=== PATIENT | male | born 1960 | race Caucasian/White ===

== ENCOUNTER 2017-09-10 17:59 | Emergency (ER) | payer OTHER, MEDICARE ==
--- NOTE | 2017-09-10 18:10 | PDOC ---
Rapid Medical Evaluation Time Seen by Provider: 09/10/17 18:06 Medical Evaluation: Allergies Allergy/AdvReac Type Severity Reaction Status Date / Time piperacillin sodium Allergy Mild Verified 06/12/15 13:23 [From Zosyn] tazobactam sodium Allergy Mild Verified 06/12/15 13:23 [From Zosyn] I have performed a brief in-person evaluation of this patient. The patient presents with a chief complaint of: toothache x 4 days. Called dentist today who said to come here Pertinent physical exam findings: poor dentition. erythematous, slightly swollen gingiva of right lower mouth. Took 2 excedrin at 2pm and is using ambesol. Patient is willing to have an inferior alveolar block injection. HE IS ON COUMADIN I have ordered the following: nothing The patient will proceed to the ED for further evaluation. Discharge Disposition - Diagnosis Toothache - Referrals Referrals: Lori Coyle MD [Primary Care Provider] - - Patient Instructions - Post Discharge Activity
[2017-09-10 18:14] VITALS: BP 120/51; PULSE 96; TEMP 97.9; BMI 35.7
--- NOTE | 2017-09-10 18:32 | PDOC ---
History of Present Illness - General Chief Complaint: Toothache Stated Complaint: TOOTHACHE, BACK PAIN Time Seen by Provider: 09/10/17 18:06 History Source: Patient, Parent(s) Exam Limitations: No Limitations - History of Present Illness Initial Comments: 09/10/17 18:43 Patient came to emergency department for evaluation of dental pain. States his upper or many months with multiple areas of dental issues and caries. At 3 teeth pulled last month and stated had onset of pain to the right upper molars 2 days ago. Has been using aspirin products and embolus. Went to see his dentist today who referred him to the emergency department. Denies fever, denies facial swelling but feels has a swelling and has come wall. Came for evaluation and hopeful antibiotics. Timing/Duration: unsure Severity: mild Associated Symptoms: reports: headaches, loss of appetite, malaise. denies: fever/chills Past History - Travel Traveled outside of the country in the last 30 days: No Close contact w/someone who was outside of country & ill: No - Past Medical History Allergies/Adverse Reactions: Allergies Allergy/AdvReac Type Severity Reaction Status Date / Time piperacillin sodium Allergy Mild Verified 09/10/17 18:07 [From Zosyn] tazobactam sodium Allergy Mild Verified 09/10/17 18:07 [From Zosyn] Home Medications: Ambulatory Orders Gabapentin [Neurontin -] 300 mg PO TID #0 capsule 10/09/12 Clopidogrel Bisulfate [Plavix -] 75 mg PO DAILY #30 tablet 05/22/15 Diazepam [Valium] 5 mg PO Q8H PRN #30 tablet 05/22/15 Lisinopril [Prinivil] 10 mg PO DAILY #30 tablet 05/22/15 Metoprolol Succinate [Toprol XL -] 25 mg PO DAILY #30 tab.sr.24h 05/22/15 Warfarin Na [Coumadin -] 7.5 mg PO DAILY@1800 #30 tablet 05/22/15 Levothyroxine [Synthroid -] 175 mcg PO DAILY 06/11/15 Oxycodone HCl/Acetaminophen [Oxycodone-Acetaminophen 10-325] 1 each PO Q4H PRN 06/11/15 Atorvastatin Ca [Lipitor] 40 mg PO HS tablet 06/13/15 Enoxaparin [Lovenox -] 100 mg SQ BID #1 disp.syrin 06/13/15 Rifampin 300 mg PO BID #14 capsule 06/13/15 Ropinirole HCl [Requip -] 0.5 mg PO HS tablet 06/13/15 Clindamycin [Cleocin -] 300 mg PO TID #21 capsule 09/10/17 Oxycodone HCl/Acetaminophen [Percocet 5-325 mg Tablet -] 1 - 2 tab PO Q4H PRN # 7 tablet MDD 4 09/10/17 Cancer: No Cardiac Disorders: No CVA: No Dementia: No Diabetes: No GI Disorders: No HTN: Yes Hypercholesterolemia: No Liver Disease: No Seizures: No Thyroid Disease: Yes (hypo) - Surgical History Orthopedic Surgery: Yes (R. Ankle fx., back/neck disc disease, arterial occlusion LLE) - Suicide/Smoking/Psychosocial Hx Smoking Status: Yes Smoking History: Former smoker Have you smoked in the past 12 months: Yes Number of Cigarettes Smoked Daily: 7 If you are a former smoker, when did you quit?: 07/2017 Information on smoking cessation initiated: Yes 'Breaking Loose' booklet given: 03/10/15 Hx Alcohol Use: No Drug/Substance Use Hx: No Substance Use Type: None Hx Substance Use Treatment: No Review of Systems - Review of Systems Able to Perform ROS?: Yes Is the patient limited Telugu proficient: Yes Constitutional: Yes: Symptoms Reported, See HPI, Loss of Appetite, Malaise. No : Fever HEENTM: Yes: Symptoms Reported, See HPI, Throat Pain, Mouth Pain, Dental Problems Respiratory: Yes: See HPI. No: Symptoms reported, Cough Musculoskeletal: Yes: See HPI. No: Symptoms Reported Integumentary: Yes: See HPI. No: Symptoms Reported All Other Systems: Reviewed and Negative *Physical Exam - Vital Signs Last Vital Signs Temp Pulse Resp BP Pulse Ox 97.9 F 96 H 18 120/51 100 09/10/17 18:05 09/10/17 18:05 09/10/17 18:05 09/10/17 18:05 09/10/17 18:05 - Physical Exam General Appearance: Yes: Appropriately Dressed HEENT: positive: MIGUEL, Normal ENT Inspection, TMs Normal, Pharynx Normal, Other (multiple areas of decayed teeth with areas of dentine loss. Has no obvious abscess although has tenderness along gingival borders posterior right side, nonfluctuant area). negative: Pharyngeal Erythema Neck: positive: Tender, Supple, Lymphadenopathy (R), Lymphadenopathy (L) Respiratory/Chest: positive: Lungs Clear, Normal Breath Sounds Gastrointestinal/Abdominal: positive: Soft. 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 We'll start amoxicillin, the block due to patient's anticoagulated status and extremely poor dentition. We'll give #6 Percocet tablets and have follow-up at centers/dental clinic [facility] tomorrow morning *DC/Admit/Observation/Transfer Diagnosis at time of Disposition: Toothache - Discharge Dispostion Disposition: HOME Condition at time of disposition: Stable Decision to Admit order: No - Referrals Referrals: Lori Coyle MD [Primary Care Provider] - - Patient Instructions Printed Discharge Instructions: DI for Dental Pain Additional Instructions: Rest, drink lots of fluids: Teas, water, soups Saltwater gargles/ keep mouth clean and rinse after each meal May use wet teabag for pain relief to area Avoid hard chewing foods, stick to ice cream, Jell-O, yogurt etc. Tylenol or Motrin for fever and pain Complete all medication as prescribed Seek dental appointment as soon as possible for evaluation of dental injury/pain Followup with private physician in one to 2 days as needed Return to emergency department for worsened symptoms, fevers, swelling to face or worsened pain - Post Discharge Activity Forms/Work/School Notes: Back to Work
== END 2017-09-10 18:50 | disposition home or self-care (01) ==
LOC: JERFT 17:59
DX: K02.9 Dental caries, unspecified (principal); I10 Essential (primary) hypertension; E03.9 Hypothyroidism, unspecified; Z79.01 Long term (current) use of anticoagulants; Z88.8 Allergy status to other drugs, medicaments and biological substances
CPT/HCPCS: 99281-25

== ENCOUNTER 2018-01-19 12:12 | Emergency (ER) | payer OTHER, MEDICARE ==
[2018-01-19 12:31] VITALS: BP 135/86; PULSE 93; TEMP 98.1; BMI 33.4
--- NOTE | 2018-01-19 13:24 | PDOC ---
History of Present Illness - General Chief Complaint: Toothache Stated Complaint: SWELLING, MOUTH Time Seen by Provider: 01/19/18 12:46 - History of Present Illness Initial Comments: Sandor Vera is a 57yo man with a PMH of HTN, HLD, hypothyroid, restless leg, PAD s/p LLE thrombectomy and stent, RLE bypass, on anticoagulation, recently diagnosed DM, and chronic dental problems who presents with a left upper toothache for two days and new facial swelling today. He was previously seen in August for a similar issue and given a prescription for augmentin; he has not seen a dentist since that time due to insurance difficulties. Mr Vera reports that he started having tooth pain in his left upper teeth on Thursday. He was taking Tylenol at home and using a topical numbing medication with good pain relief. Today, he is no longer having any pain in his teeth, but he noticed swelling under his left eye. He called a nurse on the phone to ask for advice, and he was told that he might have an infection and needed to present to the ED. He denies pain in the area of facial swelling. He has not had any fevers, shivering, swelling or drainage in his mouth, nasal congestion, ear or throat pain. Past History - Past Medical History Allergies/Adverse Reactions: Allergies Allergy/AdvReac Type Severity Reaction Status Date / Time piperacillin sodium Allergy Mild Verified 01/19/18 12:19 [From Zosyn] tazobactam sodium Allergy Mild Verified 01/19/18 12:19 [From Zosyn] Home Medications: Ambulatory Orders Clopidogrel Bisulfate [Plavix -] 75 mg PO DAILY #30 tablet 05/22/15 Diazepam [Valium] 5 mg PO Q8H PRN #30 tablet 05/22/15 Lisinopril [Prinivil] 10 mg PO DAILY #30 tablet 05/22/15 Metoprolol Succinate [Toprol XL -] 25 mg PO DAILY #30 tab.sr.24h 05/22/15 Warfarin Na [Coumadin -] 7.5 mg PO DAILY@1800 #30 tablet 05/22/15 Levothyroxine [Synthroid -] 150 mcg PO DAILY 06/11/15 Oxycodone HCl/Acetaminophen [Oxycodone-Acetaminophen 10-325] 1 each PO Q4H PRN 06/11/15 Atorvastatin Ca [Lipitor] 40 mg PO HS tablet 06/13/15 Rifampin 300 mg PO BID #14 capsule 06/13/15 Ropinirole HCl [Requip -] 0.5 mg PO HS tablet 06/13/15 Oxycodone HCl/Acetaminophen [Percocet 5-325 mg Tablet -] 1 - 2 tab PO Q4H PRN # 7 tablet MDD 4 09/10/17 Gabapentin [Neurontin -] 400 mg PO BID 01/19/18 Metformin HCl [Metformin HCl ER] 500 mg PO BID 01/19/18 Cancer: No Cardiac Disorders: No CVA: No COPD: No Dementia: No Diabetes: Yes (on meds just started) GI Disorders: No HTN: Yes Hypercholesterolemia: No Liver Disease: No Seizures: No Thyroid Disease: Yes (hypo) - Surgical History Orthopedic Surgery: Yes (R. Ankle fx., back/neck disc disease, arterial occlusion LLE) - Immunization History Immunization Up to Date: Yes - Suicide/Smoking/Psychosocial Hx Smoking Status: Yes Smoking History: Current every day smoker Have you smoked in the past 12 months: Yes Number of Cigarettes Smoked Daily: 5 If you are a former smoker, when did you quit?: 07/2017 Information on smoking cessation initiated: No 'Breaking Loose' booklet given: 03/10/15 Hx Alcohol Use: Yes Drug/Substance Use Hx: No Substance Use Type: None Hx Substance Use Treatment: No Review of Systems - Review of Systems Comments:: General: No fevers, no chills, no weight or appetite change, no malaise HEENT: No changes in vision, no changes in hearing, no congestion, no sore throat CV: No chest pain, no palpitations, no LE edema Pulm: No SOB, no cough, no wheezing GI: No nausea or vomiting, no change in bowel habits, no melena : No frequency, no urgency, no dysuria Musc: + Chronic back pain, no joint swelling, no recent injury Skin: No rash, no lesions, no erythema Endo: No excessive thirst, no heat/cold intolerance Heme: No unusual bruising or bleeding, no swollen glands Neuro: No syncope, +chronic numbness and weakness in b/l ulnar distribution Vasc: h/o PAD Psych: No recent change in mood, no SI or HI *Physical Exam - Vital Signs Last Vital Signs Temp Pulse Resp BP Pulse Ox 98.1 F 93 H 18 135/86 100 01/19/18 12:19 01/19/18 12:19 01/19/18 12:19 01/19/18 12:19 01/19/18 12:19 - Physical Exam Comments: General: Comfortable, no acute distress HEENT: PERRL, EOMI, MMM, voice normal, normal neck ROM, no LAD Very poor dentition. Less than half of teeth present. Multiple teeth broken or chipped, numerous visible carries. Upper teeth left 2nd and 3rd from midline broken off at the gumline. Gums surrounding erythematous and visibly swollen compared to right. No drainage or open wounds. Left lower eyelid minimally swollen and nontender Slight induration and erythema immediately to the left of his nose. Moderately TTP. No fluctuance. Cards: RRR Pulm: Comfortable on room air Abd: Soft, nontender, nondistended Ext: Atraumatic. ROM intact. Strength 5/5 and equal bilaterally Skin: Normal color, no rashes or lesions Neuro: A&Ox3, CN grossly intact, normal speech, motor/sensory grossly intact and symmetric Psych: Mood appropriate to situation Medical Decision Making - Medical Decision Making Sandor Vera is a 57yo man with multiple chronic medical conditions including poor dentition with numberous missing teeth and carries, previously seen in August for a toothache, poor dental follow-up, who presents with left upper tooth pain for 2 days and now left paranasal and left lower eyelid swelling and tenderness today. - Exam of mouth reveals red, swollen, tender upper left gums consistent with gingivitis surrounding 2 teeth broken off at the gumline - Left face with slight induration and tenderness, but no significant swelling, no fluctuance, no crepitus. Along with a lack of any apparent wound, drainage, or sign of an abscess in the mouth, there is currently no concern for facial abscess that needs to be drained - 1x dose augmentin given in ED. Will prescribe 10 day course of augmentin to complete at home. - Discussed with Mr Vera that he needs to see his dentist as soon as possible. He states that he will call to make an appointment today - Discussed return precautions including significantly increased swelling, pain , redness in his face, or worsening of symptoms after 24-48hrs of antibiotics. He stated understanding. Discharge home with Augmentin and close dental follow up. Seen with Dr Hart. Drea Calzada PGY1 *DC/Admit/Observation/Transfer Diagnosis at time of Disposition: Gingivitis - Discharge Dispostion Disposition: HOME Condition at time of disposition: Stable Decision to Admit order: No - Referrals Referrals: Domingo Smith MD [Primary Care Provider] - - Patient Instructions Printed Discharge Instructions: DI for Dental Pain, DI for Gingivitis Additional Instructions: Discharge Instructions: - You were seen in the ED for pain in your left upper teeth and left facial swelling with pain - You most likely have a gum infection called gingivitis. Becasue it is present near broken teeth, the infection and inflammation may have extended up into your left cheek - There is no sign currently of any fluid pocket or abscess that needs to be drained - You were given the first dose of an antibiotic, Augmentin, in the ED. You have been prescribed this antibiotic to continue at home. Please take it twice per day starting tonight until you finish all of the pills. Do not stop taking it early even if you feel better. - Please make an appointment as soon as possible, ideally tomorrow, to see your regular dentist for follow up. - Return to the ED for immediate evaluation if you have significantly worsening pain, swelling, redness in your face, if you have fevers at home (100F or higher ), if you notice any draining wound in your mouth, or if you symptoms continue to worsen even after 1-2 days of antibiotic treatment. - Post Discharge Activity
[2018-01-19] MEDS ORDERED: AMOX TR/POT CLAV 875MG/125MG TABLETS (FP) PO ONE (13:52)
[2018-01-19] MEDS ORDERED: AMOX TR/POT CLAV 875MG/125MG TABLETS (FP) ONE (14:09)
--- NOTE | 2018-01-19 14:13 | PDOC ---
Attending Attestation - Resident Resident Name: Drea Calzada - ED Attending Attestation I have performed the following: I have examined & evaluated the patient, The case was reviewed & discussed with the resident, I agree w/resident's findings & plan, Exceptions are as noted - Medical Decision Making 01/19/18 13:52 A portion of this note was documented by scribe services under my direction. I have reviewed the details of the note, within reason, and agree with the documentation with the following case summary and management plan written by me. Patient treated in the ED. Nursing notes are reviewed and incorporated into the medical decision-making. Vital signs reviewed. Vital Signs Temp Pulse Resp BP Pulse Ox 98.1 F 93 H 18 135/86 100 01/19/18 12:19 01/19/18 12:19 01/19/18 12:19 01/19/18 12:19 01/19/18 12:19 57 year old male with hx of HTN, DM, PAD, CAD, multiple spinal surgeries, poor dentition p/w tooth infection. The patient noted for the last 2 days of having left upper tooth pain. Noted some pain along the gums and today, noticed some induration of left maxillary facial region. No airway obstruction. There is no clinical evidence of orbital cellulitis or facial abscess. The patient has gingivitis and very early stages of very mild left maxillary facial cellulitis. Pt has taken augmentin prior without complications. Will d/c patient with augmentin and encourage him to follow up with a dentist. <Alexei Hart - Last Filed: 01/19/18 13:51> - HPI HPI: 01/19/18 14:27 The patient is a 57-year-old male, with a past medical history of HTN, DM, PAD, CAD, hypothyroidism, poor dentition, who presents to the ED with 2 days of left upper tooth pain. Patient reports taking Tylenol at home and using a topical numbing cream that helped to alleviate his symptoms. He noted some swelling to his left maxillary region and pain along his gums this morning which prompted him to report to the ED. He denies any fevers, chills, throat swelling, throat pain, or orbital swelling. Allergies: piperacillin sodium, tazobactam sodium. Past Social History: Reports tobacco and alcohol use. Past Surgical History: R. Ankle fx., back/neck disc disease, arterial occlusion LLE PCP: Dr. Domingo Smith. - Physicial Exam PE: 01/19/18 14:27 GENERAL: Awake, alert, and fully oriented, in no acute distress HEAD: No signs of trauma EYES: PERRLA, EOMI, no pain, no periorbital edema, sclera anicteric, conjunctiva clear ENT: (+)Poor dentition, exposed and infected gingiva around tooth 6, very mild erythema, a 3x3cm area of induration to the left maxillary region, no fluctuates , very mild erythema. Auricles normal inspection, hearing grossly normal, nares patent, oropharynx clear without exudates. Moist mucosa. NECK: Normal ROM, supple, no lymphadenopathy, JVD, or masses EXTREMITIES: Normal range of motion, no edema. No clubbing or cyanosis. No cords, erythema, or tenderness NEUROLOGICAL: Cranial nerves II through XII grossly intact. Normal speech, normal gait SKIN: Warm, Dry, normal turgor, no rashes or lesions noted. <Lyla Zavaleta - Last Filed: 01/19/18 14:28> Attestations - Attestations 01/19/18 14:28 Documentation prepared by Lyla Zavaleta, acting as general medical practitioner for Alexei Hart MD. <Lyla Zavaleta - Last Filed: 01/19/18 14:28>
== END 2018-01-19 14:30 | disposition home or self-care (01) ==
LOC: JER 12:12
DX: K05.00 Acute gingivitis, plaque induced (principal); I10 Essential (primary) hypertension; E78.00 Pure hypercholesterolemia, unspecified; E03.9 Hypothyroidism, unspecified; E11.9 Type 2 diabetes mellitus without complications; Z79.84 Long term (current) use of oral hypoglycemic drugs; I73.89 Other specified peripheral vascular diseases; Z95.820 Peripheral vascular angioplasty status with implants and grafts; Z79.01 Long term (current) use of anticoagulants; Z88.8 Allergy status to other drugs, medicaments and biological substances
CPT/HCPCS: 99281-25

== ENCOUNTER 2021-10-30 17:18 | Observation (INO) | payer OTHER, MEDICARE ==
[2021-10-30] MEDS ORDERED: SODIUM CHLORIDE 1,000 ML IV STA (17:30)
[2021-10-30] MEDS ORDERED: ACETAMINOPHEN 1000 MG/100 ML BAG IVPB ONE (17:31)
[2021-10-30] MEDS ORDERED: ACETAMINOPHEN INJECTION 100 ML IVPB ONE (17:51)
[2021-10-30 17:55] LABS: HEMATOCRIT 39.8 % (35.4-49); HEMOGLOBIN 14.1 G/dL (11.7-16.9); MCHC 35.5 g/dl (32.0-35.9); MEAN CELL VOLUME 87.2 fl (80-96); MEAN PLT VOLUME 7.6 fl (7.5-11.1); PLATELET COUNT 417.5 10^3/uL (134-434); RBC 4.56 10^6/uL (4.00-5.60); RDW 14.8 % (11.9-15.9); WHITE BLOOD COUNT 13.9 10^3/uL (4.0-10.8)
[2021-10-30 18:18] LABS: PLATELET ESTIMATE ADEQUATE
[2021-10-30 18:23] LABS: CALCIUM 8.7 mg/dl (8.5-10)
[2021-10-30 18:34] LABS: ALBUMIN 2.6 g/dl (3.4-5.0); BILIRUBIN,TOTAL 1.2 mg/dl (0.2-1); TOT PROT 6.8 g/dl (6.4-8.2)
[2021-10-30 19:02] LABS: INR > 15.00 (0.83-1.09)
[2021-10-30] MEDS ORDERED: PHYTONADIONE 5 MG TABLET PO ONE (19:59)
[2021-10-30] MEDS ORDERED: PHYTONADIONE 5 MG TABLET ONE (20:34)
[2021-10-30] MEDS: GABAPENTIN 400 MG CAPSULE PO SCH (23:26)
[2021-10-30] MEDS: rOPINIRole HCL 0.5 MG TABLET PO SCH (23:26)
[2021-10-30 23:53] VITALS: BMI 28.3
[2021-10-31 01:06] LABS: URINE APPEARANCE CLEAR; URINE BILIRUBIN NEGATIVE (NEGATIVE); URINE COLOR YELLOW; URINE GLUCOSE (UA) NEGATIVE (NEGATIVE); URINE KETONE 1+ (NEGATIVE); URINE LEUK ESTERASE NEGATIVE (NEGATIVE); URINE NITRITE NEGATIVE (NEGATIVE); URINE PROTEIN NEGATIVE (NEGATIVE)
[2021-10-31] MEDS ORDERED: LEVOTHYROXINE NA 150 MCG TABLET PO SCH (07:00)
[2021-10-31 07:54] LABS: CREATININE 0.8 mg/dl (0.55-1.3); MAGNESIUM 1.9 mg/dL (1.8-2.4); PHOSPHOROUS 2.7 mg/dl (2.5-4.9)
[2021-10-31 08:02] LABS: INR 5.26 (0.83-1.09); PROTHROMBIN TIME (PATIENT) 61.5 SEC (9.7-13.0)
[2021-10-31 08:05] LABS: ACTIVATED PTT 58.1 SECONDS (25.2-36.5)
[2021-10-31] MEDS: GABAPENTIN 400 MG CAPSULE PO SCH ×2 (09:29→21:33)
[2021-10-31] MEDS: CLOPIDOGREL BISULFATE 75 MG TABLET (FP) PO SCH (09:29)
[2021-10-31] MEDS: ACETAMINOPHEN 325 MG TABLET (FP) PO PRN ×2 (09:29→19:44)
[2021-10-31] MEDS: metoPROLOL SUCCINATE 25 MG TAB.SR.24H (FP) PO SCH (09:30)
[2021-10-31 09:31] LABS: ALBUMIN 2.3 g/dl (3.4-5.0); BILIRUBIN,DIRECT 0.4 mg/dL (0.0-0.2); BILIRUBIN,TOTAL 1.2 mg/dl (0.2-1); TOT PROT 5.9 g/dl (6.4-8.2)
[2021-10-31 09:34] LABS: BASO % 0.2 % (0-2.0); EOS % 0.3 % (0-4.5); HEMATOCRIT 36.4 % (35.4-49); HEMOGLOBIN 12.5 GM/dL (11.7-16.9); LYMPH % 10.9 % (8-40); MCH 29.4 pg (25.7-33.7); MCHC 34.2 g/dl (32.0-35.9); MEAN CELL VOLUME 85.9 fl (80-96); MEAN PLT VOLUME 8.1 fl (7.5-11.1); NEUT % 80.6 % (42.8-82.8); PLATELET COUNT 414 10^3/uL (134-434); RBC 4.24 M/mm3 (4.00-5.60); RDW 13.7 % (11.9-15.9); WHITE BLOOD COUNT 9.6 K/mm3 (4.0-10.0)
[2021-10-31 14:03] LABS: COCAINE, UR NEGATIVE (NEGATIVE); OPIATES, URI NEGATIVE (NEGATIVE); URINE AMPHETAMINES NEGATIVE (NEGATIVE); URINE BARBITURATES NEGATIVE (NEGATIVE)
[2021-10-31 14:04] LABS: METHADONE, UR NEGATIVE (NEGATIVE); PHENCYCLIDINE,URINE NEGATIVE (NEGATIVE); URINE BENZODIAZEPINES NEGATIVE (NEGATIVE)
[2021-10-31] MEDS: rOPINIRole HCL 0.5 MG TABLET PO SCH (21:33)
[2021-10-31] MEDS ORDERED: MELATONIN 5 MG TABLETS PO PRN (21:59)
[2021-11-01 02:06] VITALS: RESP 18
[2021-11-01 08:16] LABS: ALBUMIN 2.2 g/dl (3.4-5.0); BILIRUBIN,TOTAL 1.6 mg/dl (0.2-1); CREATININE 0.8 mg/dl (0.55-1.3); TOT PROT 5.8 g/dl (6.4-8.2)
[2021-11-01] MEDS: metoPROLOL SUCCINATE 25 MG TAB.SR.24H (FP) PO SCH (09:25)
[2021-11-01] MEDS: CLOPIDOGREL BISULFATE 75 MG TABLET (FP) PO SCH (09:25)
[2021-11-01] MEDS: GABAPENTIN 400 MG CAPSULE PO SCH (09:25)
[2021-11-01 11:06] VITALS: BP 140/72; PULSE 77; TEMP 98.3
[2021-11-01 11:15] LABS: BASO % 0.5 % (0-2.0); EOS % 0.5 % (0-4.5); LYMPH % 13.2 % (8-40); MCH 30.3 pg (25.7-33.7); MCHC 35.3 g/dl (32.0-35.9); MEAN CELL VOLUME 85.8 fl (80-96); MEAN PLT VOLUME 7.9 fl (7.5-11.1); MONO % 9.1 % (3.8-10.2); NEUT % 76.7 % (42.8-82.8); PLATELET COUNT 396 10^3/uL (134-434); RBC 3.96 M/mm3 (4.00-5.60); RDW 13.8 % (11.9-15.9); WHITE BLOOD COUNT 9.3 K/mm3 (4.0-10.0)
== END 2021-11-01 13:00 | disposition home or self-care (01) ==
LOC: FER 17:18 → FM/S 20:52 → OBSVTOIN 22:53 → INTOOBSV 22:53 → UNDODISIN 11-01 13:00
PROVIDERS: ADMIT Hospitalist
PROC: 3E033NZ Introduction of Analgesics, Hypnotics, Sedatives into Peripheral Vein, Percutaneous Approach (ICD-10-PCS; principal; 2021-10-30)
PROC: 3E0337Z Introduction of Electrolytic and Water Balance Substance into Peripheral Vein, Percutaneous Approach (ICD-10-PCS; 2021-10-30)
DX: R79.89 Other specified abnormal findings of blood chemistry (principal); R06.02 Shortness of breath; I73.9 Peripheral vascular disease, unspecified; M79.10 Myalgia, unspecified site; R11.2 Nausea with vomiting, unspecified; R19.7 Diarrhea, unspecified; Z87.891 Personal history of nicotine dependence; E03.9 Hypothyroidism, unspecified; I10 Essential (primary) hypertension; R05.9 Cough, unspecified; F41.8 Other specified anxiety disorders; G25.81 Restless legs syndrome; Z88.8 Allergy status to other drugs, medicaments and biological substances
CPT/HCPCS: 0241U-QW; 36415; 71045-TC-FY; 76705-TC; 80048; 80053; 80076; 80307; 81003; 82105; 82378; 83036; 83735; 84100; 84439; 84443; 85025; 85027; 85610; 85730; 86301; 87081; 93005; 93306-TC; 96361; 96374; 99285-25; G0378